=== PATIENT | male | born 1950 | race Caucasian/White ===

== ENCOUNTER 2024-08-06 13:26 | Outpatient (CLI) | payer MEDICARE, SELFPAY ==
--- NOTE | ~2024-08-06 | PE_ITS ---
EXAMINATION: PET_PETPSMAST_PT DATE: 08/06/2024 15:29 INDICATION: Prostate cancer TECHNIQUE: 5.749 mCi of Illucix Ga-[id number]) was administered i.v. Low dose computed rosa graphy (CT) images were acquired from the base of the brain to the base of the brain to the proximal thighs for attenuation correction and anatomic localization. Positron emission tomography (PET) image s were acquired in the same distribution beginning 88 minutes after injection. Images including fused PET/CT images were reconstructed in axial, coronal, and sagittal planes. Automated exposure control technique was employed. The dose-length product was 1012.55mGy-cm. COMPARISON: None FINDINGS: Head/neck: Typical pattern of symmetric physiologic increased activity in the lacrimal, parotid and submandibula r glands as well as along the mucosa of the nasal and oral cavities, pharynx and hypopharynx. No path ologically enlarged cervical lymphadenopathy or suspicious foci of increased uptake in the visualized head or neck. Chest: Lungs are clear with no suspicious pulmonary nodules, pneumonia, pulmonary edema or pleural effusion. Heart size normal. Atherosclerotic coronary artery calcifications and aortic valve calcific lesion. Thoracic aorta is normal in caliber. No pathologically enlarged or PSMA avid thoracic lymphadenopathy . Abdomen/pelvis/proximal thighs: Physiologic renal accumulation and excretion of activity in the kidneys, bladder and along portions o f ureters. Surgical clips are brachytherapy seeds at the periphery of the small prostate. There is mi nimal increased activity at the left and right sides of the prostate with maximal SUV of 4.1 on the l eft and 3.9 on the right. There are photopenic defects associated with the largest of multiple scatte red hepatic cysts which measure up to 3.2 cm. Otherwise normal degree and slightly heterogenous patte rn of increased uptake throughout the liver and spleen without radiologic correlate or dominant PSMA avid lesion. The gallbladder, pancreas and bilateral adrenal glands are normal. Moderate uptake scatt ered throughout the bowels with typical duodenal and proximal jejunal predominance and without radiol ogic correlate, also likely physiologic. Normal appendix. No other abnormal foci of increased uptake or pathologically enlarged lymphadenopathy in the abdomen, pelvis or proximal thighs. Musculoskeletal: Severe cervical and lumbar spondylosis. Small bone island at the left lesser trochanter. No suspiciou s lytic, blastic or abnormally PSMA avid bone lesions. IMPRESSION: 1. Minimal increased uptake at the left and right sides of the small prostate which could represent r esidual/locally recurrent prostate cancer. No other lesions suspicious for metastatic disease. Reviewed, dictated and finalized at location A. IMPRESSION: 1. Minimal increased uptake at the left and right sides of the small prostate w hich could represent residual/locally recurrent prostate cancer. No other lesio ns suspicious for metastatic disease.
--- OUTSIDE RECORDS SUMMARY | 2024-08-06 13:32 | XMS_ITS | Clinical Summary ---
Author Organization [facility] Address [address] [place] [phone] Care Team Providers Care Acid Pump Operator Name Role Phone Narda Martinez NP Primary Care Provider [phone] Allergies No known active allergies Medications aspirin 81 mg enteric coated tablet daily Active folic acid (FOLVITE) 1 mg tablet TAKE 1 TABLET BY MOUTH DAILY WITH MEAL 022 Active vitamin B complex capsule Take 1 capsule by mouth daily Active cholecalciferol, vitamin D3, (VITAMIN D3 ORAL) Take by mouth daily Active albuterol HFA (PROVENTIL HFA,VENTOLIN HFA,PROAIR HFA) 90 mcg/actuation inhalerIndications: COPD exacerbation (HCC),Lower resp. tract infection Inhale 2 puffs every 6 (six) hours as needed for wheezing or shortness of breath 1 each 024 Active fluticasone propion-salmeteroL (ADVAIR DISKUS) 500-50 mcg/dose diskus inhalerIndications: Vbsey-2-pgbylxpfxkd deficiency (HCC),Pulmonary emphysema, unspecified emphysema type (HCC) Inhale 1 puff 2 (two) times a day Rinse mouth with water after use. Do not swallow. 180 each 1 024 Active gabapentin (NEURONTIN) 600 mg tabletIndications:D DD (degenerative disc disease), lumbar,Lumbar facet arthropathy TAKE 1 TABLET BY MOUTH EVERY 6 HOURS 360 tablet 1 025 Active benzonatate (TESSALON) 200 mg capsuleIndications: Acute non-recurrent pansinusitis Take 1 capsule (200 mg total) by mouth 3 (three) times a day as needed for cough 30 capsule 025 Active Additional Information Patient not taking.Reported on 06/25/2024 atorvastatin (LIPITOR) 80 mg tabletIndications:C oronary arteriosclerosis Take 1 tablet (80 mg total) by mouth nightly 90 tablet 1 025 Active FLUoxetine (PROzac) 40 mg capsule Take 1 capsule (40 mg total) by mouth daily 90 capsule 1 025 Active losartan (COZAAR) 25 mg tablet TAKE 1 TABLET BY MOUTH EVERY DAY IN THE MORNING 100 tablet 1 025 Active losartan (COZAAR) 25 mg tablet TAKE 1 TABLET BY MOUTH EVERY DAY IN THE MORNING 90 tablet 1 024 2024 Discontinued FLUoxetine (PROzac) 40 mg capsule Take 1 capsule (40 mg total) by mouth daily 90 capsule 1 025 2024 Discontinued(R eorder) Active Problems Problem Noted Date Diagnosed Date Liver cyst 03/29/2022 Overview (03/29/2022): Seen on LDCT chest and US 03/2022. Needs repeat liver US 03/2023 as pt declined liver MRI Assessment & Plan (11/20/2023 6:19 PM CDT): Pt defers follow up. Likely cysts base don CT and US. We did opt offer the option for the yearly follow-up ultrasound but he elected to defer. 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 This likely contributes some to COPD. Continue Advair Atherosclerosis of aorta 09/30/2021 Assessment & Plan (11/20/2023 6:18 PM CDT): Incidental on imaging. Continue risk factor modification with high-intensity atorvastatin and aspirin Pulmonary emphysema 09/30/2021 Assessment & Plan (06/07/2024 10:44 AM RUBBER MOLDER): Pt continuing Advair, Triple therapy was too expensive in the past. Pt would like to see [facility] as he has had some more breakthrough SOB, referral placed to preferred provider. Assessment & Plan (11/20/2023 6:18 PM CDT): Chronic. Symptoms controlled. Continue generic Advair. Triple therapy was too expensive Coronary artery disease invo lving qawalangin coronary artery of qawalangin heart without angina pectoris 08/02/2021 Overview (01/21/2022): Moderate on LDCT 09/28/21 Assessment & Plan (06/07/2024 10:42 AM RUBBER MOLDER): Looks like this was incidental finding on prior chest CT. Pt continues Atorvastatin 80 mg daily and ASA 81 mg. Assessment & Plan (11/20/2023 6:20 PM CDT): Incidental noted on prior CT chest. Continue risk factor modification with high-intensity statin and aspirin. Denies recent chest pain equivalent Nicotine dependence in remission 07/21/2021 Hiatal hernia 07/21/2021 Folic acid deficiency 01/27/2021 Benign essential hypertension 01/08/2020 Assessment & Plan (06/07/2024 10:23 AM RUBBER MOLDER): Blood pressure normal in office, continuing Losartan 25 mg daily. Assessment & Plan (11/20/2023 6:18 PM CDT): Chronic. HTN controlled. Cont prescription Rx as indicated in HPI under HTN diagnosis. Low sodium diet (DASH or Mediterranean), exercise, wt loss (if over weight) discussed Dyslipidemia 01/08/2020 Assessment & Plan (11/20/2023 6:18 PM CDT): Chronic. Mostly tolerates atorvastatin but some increased aches. Check cholesterol level. Could consider change to rosuvastatin to see if the muscle cramps improve. Recurrent major depressive disorder, in full rem ission 01/08/2020 Assessment & Plan (11/20/2023 6:20 PM CDT): Chronic. Controlled. Offered option to decrease fluoxetine 20 mg daily but patient declines. Continue 40 mg dose. Reassess least yearly CKD (chronic kidney disease) stage 2, GFR 60-89 ml/min 09/25/2014 Assessment & Plan (11/20/2023 6:21 PM CDT): Mild on prior labs. Monitor DDD (degenerative disc disease), lumbar 01/25/20 14 Assessment & Plan (11/20/2023 6:20 PM CDT): Symptoms stable. Continue gabapentin. Denies intolerance. In the future we may consider trying to wean the dose some defer for now is doing well with current medication Lumbar facet arthropathy 01/24/2014 Assessment & Plan (11/20/2023 6:20 PM CDT): Symptoms stable. Continue gabapentin. Denies intolerance. In the future we may consider trying to wean the dose some defer for now is doing well with current medication History of prostate cancer 01/01/2007 Overview (01/11/2022): 2006 L 616 (30%) T1c IMRT PSA 3.9 Assessment & Plan (06/07/2024 10:43 AM RUBBER MOLDER): Have been trending pt's PSA, repeat today. Dx prostate CA x 20 years ago. If pt needs Urologist will have him see Dr Kim at [facility] in [place]. Assessment & Plan (11/20/2023 6:19 PM CDT): Patient reports this was diagnosed over 20 years ago. History has been monitored here recently. We will continue to trend PSA to ensure it does not trend up significantly. If trends up significantly then may need to arrange follow up with Urology Resolved Problems Problem Noted Date Diagnosed Date Resolved Date Cobalamin deficiency 01/27/2021 022 Encounters Date Type Department Care Team Description 06/25/2024 10:15 AM CDT Office Visit [facility] Pulmonology [address] [facility] [address] [place] [phone] Sadie Cespedes MD Shortness of breath (Primary Dx); Pulmonary emphysema, unspecified emphysema type (HCC) 06/10/2024 Results Follow-Up [facility] Primary Care at [address] [phone] Narda Martinez NP Elevated PSA (Primary Dx); History of prostate cancer 06/07/2024 10:31 AM RUBBER MOLDER - 06/07/2024 11:59 PM RUBBER MOLDER Hospital Encounter [address] [phone] History of prostate cancer; Vitamin D deficiency; Elevated fasting glucose; Coronary artery disease involving qawalangin coronary artery of qawalangin heart without angina pectoris Discharge Disposition: Discharge to home or self care 06/07/2024 10:30 AM RUBBER MOLDER Lab [facility] Outpatient Lab at [address] [phone] Pulmonary emphysema (HCC) (Primary Dx) 06/07/2024 10:00 AM RUBBER MOLDER Office Visit [facility] Primary Care at [address] [phone] Narda Martinez NP Pulmonary emphysema, unspecified emphysema type (HCC) (Primary Dx); Chronic obstructive pulmonary disease, unspecified COPD type (HCC); Vitamin D deficiency; History of prostate cancer; Coronary artery disease involving qawalangin coronary artery of qawalangin heart without angina pectoris; Elevated fasting glucose; Benign essential hypertension 05/22/2024 1:07 PM RUBBER MOLDER - 05/22/2024 11:59 PM RUBBER MOLDER Hospital Encounter [address] [address] Acute diarrhea Discharge Disposition: Discharge to home or self care 05/22/2024 1:00 PM RUBBER MOLDER Lab [facility] Outpatient Lab at [address] [phone] 05/22/2024 Results Follow-Up [facility] Primary Care at [address] [phone] Slade Galeano MD 05/20/2024 2:00 PM RUBBER MOLDER Lab [facility] Outpatient Lab at [address] [phone] Acute diarrhea (Primary Dx) 05/20/2024 1:40 PM RUBBER MOLDER - 05/20/2024 11:59 PM RUBBER MOLDER Hospital Encounter [address] [phone] Dehydration; Unspecified abnormal findings in urine; Fatigue, unspecified type; Acute diarrhea Discharge Disposition: Discharge to home or self care 05/20/2024 1:00 PM RUBBER MOLDER Office Visit [facility] Primary Care at [address] [phone] Slade Galeano MD Acute diarrhea (Primary Dx); Dehydration; Unspecified abnormal findings in urine; Fatigue, unspecified type 05/20/2024 Nurse Triage [facility] Patient Access [address] [place] [address] Unknown, Notinfile 05/17/2024 2:45 PM RUBBER MOLDER Office Visit [facility] at [address] [phone] Lorene Tuttle NP Acute viral syndrome (Primary Dx) 05/17/2024 - 05/17/2024 11:59 PM RUBBER MOLDER Hospital Encounter [address] [address] Acute viral syndrome Discharge Disposition: Discharge to home or self care 05/14/2024 Telephone [facility] Primary Care at [address] [phone] Narda Martinez NP from Last 3 Months Immunizations Immunization Administration Dates Next Due Influenza Virus Vaccine Trivalent Mdv 05/01/2017 Influenza, Quadrivalent, Hig h Dose, Preservative Free, Intrr 12/26/2022,12/12/2019 Influenza, Quadrivalent, Spl it, Intramuscular 01/04/2021,12/17/2019 Influenza, Quadrivalent, Spl it, Preservative Free, Intramuscular 01/16/2019 Influenza, Trivalent, High D ose, Split, Preservative Free, Intramuscular 12/26/2023,12/07/2017 Influenza, Unspecified 12/22/2021,12/12/2019, Pfizer SARS-CoV-2 Monovalent Vaccination (12+ Yrs) PURPLE 07/20/2021,01/04/2021,06/22/2020,06/01 Pfizer Sars-Cov-2 Bivalent V accination (12+ YRS) 12/22/2021 Pneumococcal Conjugate PCV 13 12/16/2015 Pneumococcal Conjugate Pcv20 10/27/2021 Pneumococcal Polysaccharide PPV23 09/25/2014 RSV Vaccine, Pref, Recombina nt, Subunit, Adjuvanted, PF, IM (Arexvy) 01/16/2023 ZOSTER Recombinant 02/09/2022,10/27/2021 Surgical History Surgery Date Site/Laterality Comments INGUINAL HERNIA REPAIR 04/03/1971 - 04/02/1972 TENDON REPAIR Left hand. 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, A1A pheno:M2M2 Chronic bronchitis (HCC) about 2008 Family History Medical History Relation Name Comments Alcohol abuse Father Crow Sr Coronary artery disease Father Crow Sr Hyperlipidemia Father Crow Sr Depression Mother Erika Hyperlipidemia Mother Erika Relation Name Status Comments Father Crow Sr Mother Erika Social History Tobacco Use Types Packs/Day Years Used Date Smoking Tobacco: Former Cigarettes 1.5 40 0 04/03/1966 - 04/03/2006 Smokeless Tobacco: Never Tobacco Cessation:Counseling Given: Not Answered PHQ-2 Answer Date Recorded PHQ-2 Total Score (If total score is 3 or more points, staff should administer the PHQ-9) 0 06/07/2024 Sex and Gender Information Value Date Recorded Sex Assigned at Not on file Legal Sex Male 9:30 AM CDT Gender Identity Male 11/02/2021 9:32 AM CDT Sexual Orientation Not on file Obstetrics History Last Filed Vital Signs Vital Sign Reading Time Taken Comments Blood Pressure 128/76 06/25/2024 10:05 AM CDT Pulse 69 06/25/2024 10:05 AM CDT Temperature 36.2 C (97.2 F) 06/25/2024 10:05 AM CDT Respiratory Rate 18 06/25/2024 10:05 AM CDT Oxygen Saturation 95% 06/25/2024 10:05 AM CDT Inhaled Oxygen Concentration - - Weight 82.6 kg (182 lb) 06/25/2024 10:05 AM CDT Height 177.8 cm (5' 10 ) 06/25/2024 10:05 AM CDT Body Mass Index 26.11 06/25/2024 10:05 AM CDT Plan of Treatment Health Maintenance Due Date Last Done Comments DTaP/Tdap/Td Vaccine (1 - Tdap) 1961 Covid-19 Vaccine (2023-2 5 season) 2024 12/26/2023, 12/26/2022, 12/22/2021, Additional history exists Well Visit 65+ 11/19/2024 11/20/2023, 08/0 11/2022, 07/26/2021 Depression Screening 06/07/2025 06/07/2024, 11/20/2023, 11/08/2022, Additional history exists Fall Risk Assessment 06/07/2025 06/07/2024, 11/20/2023, 11/08/2022, Additional history exists Prostate Cancer Screening-PSA 06/07/2026, 03/14/2024, 11/29/2023, Additional history exists Colon Cancer Screening-Colonoscopy 12/12/20332023, 06/14/2016 Hepatitis C Screening Completed 12/20/2016 Abdominal Aortic Aneurysm (A AA) Screen Completed 02/02/2017, 02/02/2017, 02/02/2017 Pneumococcal vaccine 65+ Completed 022, 12/16/2015, 09/25/2014 Zoster Vaccine Completed 02/09/2022, 10/27/2021 Hepatitis B Screening Completed 11/29/2023 Influenza Vaccine Completed 12/26/2023, , 12/22/2021, Additional history exists Procedures Procedure Name Priority Date/Time Associated Diagnosis Comments EGFR Routine 06/07/2024 10:31 AM RUBBER MOLDER Coronary artery disease involving qawalangin coronary artery of qawalangin heart without angina pectoris COMPREHENSIVE METABOLIC PANEL Routine 06/07/2024 10:31 AM RUBBER MOLDER Coronary artery disease involving qawalangin coronary artery of qawalangin heart without angina pectoris LIPID PANEL Routine 06/07/2024 10:31 AM RUBBER MOLDER Coronary artery disease involving qawalangin coronary artery of qawalangin heart without angina pectoris HEMOGLOBIN A1C Routine 06/07/2024 10:31 AM RUBBER MOLDER Elevated fasting glucose VITAMIN D 25 HYDROXY Routine 06/07/2024 10:31 AM RUBBER MOLDER Vitamin D deficiency PSA DIAGNOSTIC Routine 06/07/2024 10:31 AM RUBBER MOLDER History of prostate cancer C. DIFFICILE TESTING Routine 05/22/2024 1:07 PM RUBBER MOLDER Acute diarrhea EGFR Routine 05/20/2024 1:40 PM RUBBER MOLDER Acute diarrhea DIFFERENTIAL AUTO Routine 05/20/2024 1:4 0 PM RUBBER MOLDER Acute diarrhea CBC WITH AUTO DIFFERENTIAL Routine 05/20/2024 1:40 PM RUBBER MOLDER Acute diarrhea BASIC METABOLIC PANEL Routine 05/20/2024 1:40 PM RUBBER MOLDER Acute diarrhea THYROID FUNCTION CASCADE Routine 05/20/2024 1:40 PM RUBBER MOLDER Fatigue, unspecified type VITAMIN B12 Routine 05/20/2024 1:40 PM RUBBER MOLDER Fatigue, unspecified type URINE CULTURE Routine 05/20/2024 1:40 PM RUBBER MOLDER Dehydration Unspecified abnormal findings in urine POCT URINALYSIS, AUTO W/O SCOPE Routine 05/20/2024 1:39 PM RUBBER MOLDER Dehydration POC INFLUENZA A/B, COVID-19 ANTIGEN Routine 05/17/2024 3:12 PM RUBBER MOLDER Acute viral syndrome INFLUENZA A/B, RSV, AND COVID-19 PCR Routine 05/17/2024 12:00 AM RUBBER MOLDER Acute viral syndrome HM COLONOSCOPY Routine 12/13/2023 9:21 AM CDT HEPATITIS C SCREENING Routine 12/20/2016 from Last 3 Months or Most Recently Relevant to Health Maintenance Results * eGFR (06/07/2024 10:31 AM RUBBER MOLDER) eGFR 75 >=60 mL/min/1. 73 m2 Comment: Interpretive Data Reference Interval Normal >/= 90 mL/min/1.73m2 Mildly decreased* 60 - 89 mL/min/1.73m2 Mildly to moderately decreased 45 - 59 mL/min/1.73m2 Moderately to severely decreased 30 - 44 mL/min/1.73m2 Severely decreased 15 - 29 mL/min/1.73m2 Kidney Failure < 15 mL/min/1.73m2 *Relative to young adult level Estimated glomerular filtration rate is determined by the 2020 CKD-EPI equation recommended by the National Kidney Foundation (A Unifying Approach to GFR Estimation: Recommendations of the NKF-ASK Task Force on Reassessing the Inclusion of Race in Diagnosing Kidney Disease, JASN 2020). The CKD-EPI equation should not be used for patients with unstable renal function and has not been validated in children and those over 70. Current interpretive data was last reviewed 2021. Blood 06/07/2024 10:3 1 AM RUBBER MOLDER 06/07/2024 10:34 PM RUBBER MOLDER us Narda Martinez DRY CLEANING ATTENDANT LAB BLOOD ORDERABLES Final Resul t Performing Organization Address [facility] de Phone Number AURELIO HESS [id number] [place] [address] * (ABNORMAL) Vitamin D 25 hydroxy (06/07/2024 10:31 AM RUBBER MOLDER) Vitamin D 25-OH 28(L) 30 - 80 ng/mL Blood 06/07/2024 10:3 1 AM RUBBER MOLDER 06/07/2024 10:30 PM RUBBER MOLDER us Narda Martinez DRY CLEANING ATTENDANT LAB BLOOD ORDERABLES Final Resul t Performing Organization Address [facility] de Phone Number AURELIO HESS [address] [facility] [place] [address] * PSA diagnostic (06/07/2024 10:31 AM RUBBER MOLDER) Pathologist [facility] PSA-Total 1.74 <=6.20 ng/mL Comment: Interpretive Data AGE SEX REFERENCE INTERVAL 0 minutes-150 years Female None 0 minutes-49 years Male None 50-59 years Male 0-3.90 60-69 years Male 0-5.40 70-79 years Male 0-6.20 80-150 years Male 0-6.20 The Du PSA Total assay procedure was used. Results from different manufacturers or methods may not be comparable. Serial testing should be performed using the same method. Current interpretive data last revised 21. Blood 06/07/2024 10:3 1 AM RUBBER MOLDER 06/07/2024 10:30 PM RUBBER MOLDER us Narda Martinez DRY CLEANING ATTENDANT LAB BLOOD ORDERABLES Final Resul t Performing Organization Address [facility] de Phone Number AURELIO HESS [address] [address] [facility] [place] [address] * (ABNORMAL) Hemoglobin A1c (06/07/2024 10:31 AM RUBBER MOLDER) Hgb A1C 5.8(H) 4.0 - 5.6 % Estimated Average Glucose 120 mg/dL AURELIO HESS Comment: The ADA recommends reporting an estimated Average Glucose (eAG) with all Hemoglobin A1c results using the equation derived from a study of 507 normal and diabetic adults. Minority populations were underrepresented and children were not included. (Diabetes Care 31:4874-6640, 2008). The eAG is not equivalent to a fasting glucose. Blood 06/07/2024 10:3 1 AM RUBBER MOLDER 06/07/2024 10:30 PM RUBBER MOLDER us Narda Martinez NP LAB BLOOD ORDERABLES Final Resul t AURELIO HESS [address] Department [place] [address] * (ABNORMAL) Lipid panel (06/07/2024 10:31 AM RUBBER MOLDER) Cholesterol 170 30 - 199 mg/dL Comment: Interpretive Data Ages < or = 19 years Acceptable: <170 mg/dL Borderline high: 170-199 mg/dL High: >or= 200 mg/dL Ages > or = 20 years Desirable: <200 mg/dL Borderline high: 200-239 mg/dL High: >or= 240 mg/dL Literature References: 1. Expert Panel on Integrated Guidelines for Cardiovascular Health and Risk Reduction in Children and Adolescents. Pediatrics 2011;128:S213 2. NCEP Expert Panel. Circulation 2004;110:227 Current Interpretive Data was last revised on 2017. Triglycerides 181(H) <=149 mg/dL AURELIO HESS Comment: Interpretive Data Ages < or = 9 years Acceptable: <75 mg/dL Borderline high: 75-99 mg/dL High: >or= 100 mg/dL Ages 10 to 20 years Acceptable: <90 mg/dL Borderline high: 90-129 mg/dL High: >or= 130 mg/dL Ages > or = 20 years Desirable: <150 mg/dL Borderline high: 150-199 mg/dL High: 200-499 mg/dL Very high: >or= 499 mg/dL Literature References: 1. Expert Panel on Integrated Guidelines for Cardiovascular Health and Risk Reduction in Children and Adolescents. Pediatrics 2011;128:S213 2. NCEP Expert Panel. Circulation 2004;110:227 Current Interpretive Data was last revised on 2017. HDL 54 >=40 mg/dL AURELIO HESS Comment: Interpretive Data Ages < or = 19 years Acceptable: >45 mg/dL Borderline low: 40-45 mg/dL Low: <40 mg/dL Ages > or = 20 years Desirable: >or= 60 mg/dL Low: <40 mg/dL Literature References: 1. Expert Panel on Integrated Guidelines for Cardiovascular Health and Risk Reduction in Children and Adolescents. Pediatrics 2011;128:S213 2. NCEP Expert Panel. Circulation 2004;110:227 Current Interpretive Data was last revised on 2017. LDL, calculated 85 <=129 mg/dL AURELIO HESS Comment: Interpretive Data Ages < or = 19 years Acceptable: <110 mg/dL Borderline high: 110-129 mg/dL High: >or= 130 mg/dL Ages > or = 20 years Optimal: <100 mg/dL Near optimal: 100-129 mg/dL Borderline high: 130-159 mg/dL High: >160 mg/dL Calculated using the Alberot LDL-C estimating equation. This equation was implemented on 2023. Prior to this date LDL-C was estimated using the Friedewald equation. Literature References: 1. Expert Panel on Integrated Guidelines for Cardiovascular Health and Risk Reduction in Children and Adolescents. Pediatrics 2011;128:S213 2. NCEP Expert Panel. Circulation 2004;110:227 3. Alberto Boothe al. SHELLY Cardiol. 2019August 01;5(5):540-548. doi: 10.1001/[email or web address] Current Interpretive Data was last revised on 2023. Non-HDL Cholesterol 116 mg/dL AURELIO HESS Comment: Interpretive Data Ages < or = 19 years Acceptable: <120 mg/dL Borderline high: 120-144 mg/dL High: >145 mg/dL Ages > or = 20 years When triglycerides are >200 mg/dL, Non-HDL cholesterol is a secondary target of therapy with treatment goals that are 30 mg/dL greater than the LDL cholesterol target. Literature References: 1. Expert Panel on Integrated Guidelines for Cardiovascular Health and Risk Reduction in Children and Adolescents. Pediatrics 2011;128:S213 2. NCEP Expert Panel. Circulation 2004;110:227 Current Interpretive Data was last revised on 2017. Chol/HDL ratio 3 [facility] Blood 06/07/2024 10:3 1 AM RUBBER MOLDER 06/07/2024 10:30 PM RUBBER MOLDER us Narda Martinez NP LAB [place]LOOD [place] [address] [address] [place] [address] * Comprehensive metabolic panel (06/07/2024 10:31 AM RUBBER MOLDER) Sodium 140 135 - 145 mmol/L Potassium, pl 4.5 3.3 - 4.9 mmol/L [facility] Chloride 103 97 - 110 mmol/L [facility] CO2 24 22 - 32 mmol/L [facility] Anion gap 13 2 - 15 mmol/L [facility] BUN 15 6 - 25 mg/dL [facility] Creatinine 1.04 0.80 - 1.30 mg/dL [facility] Glucose 81 70 - 199 mg/dL [facility] Comment: Interpretive Data Fasting glucose >/= 126 mg/dl is diagnostic for diabetes. Fasting is defined as no caloric intake for at least 8 hours. Fasting glucose between 100 mg/dl to 125 mg/dl is diagnostic of prediabetes. In a patient with classic symptoms of hyperglycemia or hyperglycemic crisis, a random glucose >/= 200 mg/dl is diagnostic for diabetes. In the absence of unequivocal hyperglycemia, results should be confirmed by repeat testing. The classification and Diagnosis of Diabetes Diabetes Care 2021; 46: S19-S40. Current interpretive data was last revised 2022. Calcium 9.6 8.5 - 10.3 mg/dL [facility] Bilirubin, total 0.9 0.1 - 1.2 mg/dL [facility] Protein, pl 6.7 6.5 - 8.5 g/dL [facility] Albumin 4.3 3.5 - 5.0 g/dL [facility] Alk phos 80 40 - 130 Units/L [facility] ALT 29 7 - 55 Units/L [facility] AST 26 10 - 50 Units/L [facility] Blood 06/07/2024 10:3 1 AM RUBBER MOLDER 06/07/2024 10:30 PM RUBBER MOLDER Narda Martinez NP LAB BLOOD ORDERABLES Final Resul t Performing Organization Address [facility] Co de Phone Number AURELIO HESS [address] [place] [address] * (ABNORMAL) C. difficile testing Stool (05/22/2024 1:07 PM RUBBER MOLDER) [facility] Result Positive Negative Comment:Testing performed by : [facility], [address] [place]., [address] Toxin Result Positive Negative [facility] Comment:Testing performed by : [facility], [address] [place]., [address] C. diff result Positive, free toxin(A) Negative, free toxin [facility] [facility] Comment:Testing performed by : [facility], [address] [place] [address]., [id number] C. diff interp Toxigenic Clostridioides (Clostridium) difficile detected. Analysis was performed using a two-step methodology using glutamate dehydrogenase antigen detection followed by detection of C. difficile toxin(s). AURELIO Comment:Testing performed by : [facility], [address] [place] [address]., [id number] Stool 05/22/2024 1:07 PM RUBBER MOLDER 05/23/2024 2:06 AM RUBBER MOLDER Slade Galeano MD LAB MICROBIOLOGY - GENERAL ORDERABLES Final Result Performing Organization Address City/[facility] Co de Phone Number [facility] [address] [place] [address] * eGFR (05/20/2024 1:40 PM RUBBER MOLDER) [facility] eGFR 77 >=60 mL/min/1. 73 m2 Comment: Interpretive Data Reference Interval Normal >/= 90 mL/min/1.73m2 Mildly decreased* 60 - 89 mL/min/1.73m2 Mildly to moderately decreased 45 - 59 mL/min/1.73m2 Moderately to severely decreased 30 - 44 mL/min/1.73m2 Severely decreased 15 - 29 mL/min/1.73m2 Kidney Failure < 15 mL/min/1.73m2 *Relative to young adult level Estimated glomerular filtration rate is determined by the 2020 CKD-EPI equation recommended by the National Kidney Foundation (A Unifying Approach to GFR Estimation: Recommendations of the NKF-ASK Task Force on Reassessing the Inclusion of Race in Diagnosing Kidney Disease, JASN 2020). The CKD-EPI equation should not be used for patients with unstable renal function and has not been validated in children and those over 70. Current interpretive data was last reviewed 2021. Blood 05/20/2024 1:40 PM RUBBER MOLDER 05/20/2024 9:59 PM RUBBER MOLDER us Slade Galeano MD LAB BLOOD ORDERABLES Final Result Performing Organization Address City/State/ZIP Co mi Phone Number [facility] [address] [place] [address] * (ABNORMAL) Differential, auto (05/20/2024 1:40 PM RUBBER MOLDER) Neutrophil abs 4.5 1.5 - 6.5 K/cumm Imm gran abs 0.0 0.0 - 0.1 K/cumm [facility] Lymphocyte abs 1.8 0.8 - 3.3 K/cumm [facility] Monocyte abs 2.5(H) 0.2 - 0.8 K/cumm [facility] Eosinophil abs 0.4 0.0 - 0.5 K/cumm [facility] Basophil abs 0.1 0.0 - 0.1 K/cumm [facility] Neutrophil pct 48.4 % [facility] Comment: Interpretive Data Percent cell count reference ranges are not reported, since discordance with absolute values may lead to misinterpretation of CBC data. Current Interpretive Data was last revised on 2017. Imm gran pct 0.4 % [facility] Comment: Interpretive Data Percent cell count reference ranges are not reported, since discordance with absolute values may lead to misinterpretation of CBC data. Current Interpretive Data was last revised on 2017. Lymphocyte pct 19.4 % [facility] Comment: Interpretive Data Percent cell count reference ranges are not reported, since discordance with absolute values may lead to misinterpretation of CBC data. Current Interpretive Data was last revised on 2017. Monocyte pct 26.7 % [facility] Comment: Interpretive Data Percent cell count reference ranges are not reported, since discordance with absolute values may lead to misinterpretation of CBC data. Current Interpretive Data was last revised on 2017. Eosinophil pct 4.0 % [facility] Comment: Interpretive Data Percent cell count reference ranges are not reported, since discordance with absolute values may lead to misinterpretation of CBC data. Current Interpretive Data was last revised on 2017. Basophil pct 1.1 % [facility] Comment: Interpretive Data Percent cell count reference ranges are not reported, since discordance with absolute values may lead to misinterpretation of CBC data. Current Interpretive Data was last revised on 2017. Blood 05/20/2024 1:40 PM RUBBER MOLDER 05/20/2024 9:56 PM RUBBER MOLDER Slade Galeano MD LAB BLOOD ORDERABLES Final Result Performing Organization Address [facility] Co de Phone Number [facility] [address] [facility] [place] [address] * Thyroid Function [place] (05/20/2024 1:40 PM RUBBER MOLDER) TSH 1.52 0.30 - 4.20 mcIUnit/mL Blood 05/20/2024 1:40 PM RUBBER MOLDER 05/20/2024 9:56 PM RUBBER MOLDER Slade Galeano MD LAB BLOOD ORDERABLES Final Result Performing Organization Address City/[facility] Co de Phone Number AURELIO [address] [facility] [place] [address] * (ABNORMAL) CBC with auto differential (05/20/2024 1:40 PM RUBBER MOLDER) WBC 9.3 3.8 - 9.9 K/cumm Hgb 15.6 13.0 - 17.5 g/dL [facility] Hct 48.2 38.9 - 50.3 % [facility] Plt 353 150 - 400 K/cumm [facility] MPV 10.6 9.1 - 12.3 fL [facility] RBC 4.94 4.30 - 5.80 M/cumm [facility] MCV 97.6(H) 81.3 - 96.4 fL [facility] MCH 31.6 27.1 - 33.3 pg [facility] MCHC 32.4 32.3 - 35.7 g/dL [facility] RDW CV 13.1 11.1 - 14.9 % [facility] RDW SD 47.4 35.7 - 48.1 fL [facility] NRBC abs 0.00 0.00 - 0.01 K/cumm [facility] Blood 05/20/2024 1:40 PM RUBBER MOLDER 05/20/2024 9:56 PM RUBBER MOLDER Slade Galeano MD LAB BLOOD ORDERABLES Final Result Performing Organization Address [facility] de Phone Number AURELIO [facility]ESS [address] [place] [address] * Urine culture Urine, clean voided (05/20/2024 1:40 PM RUBBER MOLDER) Report Final Report: No growth Comment:Testing performed by : [facility], [address] [place] [place]., [address] Urine, clean voided 05/20/2024 1:40 PM RUBBER MOLDER 05/20/2024 10:10 PM RUBBER MOLDER Narrative [facility] - 05/22/2024 7:57 AM RUBBER MOLDER Testing performed by [facility] Microbiology Laboratory ([phone]) Slade Galeano MD LAB MICROBIOLOGY - GENERAL ORDERABLES Final Result Performing Organization Address [facility] Co de Phone Number AURELIO [address] [place] [address] * (ABNORMAL) Vitamin B12 (05/20/2024 1:40 PM RUBBER MOLDER) Vitamin B12 1,860(H) 230 - 1,250 pg/mL Blood 05/20/2024 1:40 PM RUBBER MOLDER 05/20/2024 9:56 PM RUBBER MOLDER Slade Galeano MD LAB BLOOD ORDERABLES Final Result Performing Organization Address [facility] de Phone Number [facility] [address] [place] [address] * Basic metabolic panel (05/20/2024 1:40 PM RUBBER MOLDER) Sodium 137 135 - 145 mmol/L Potassium, pl 4.1 3.3 - 4.9 mmol/L [facility] Chloride 98 97 - 110 mmol/L [facility] CO2 25 22 - 32 mmol/L [facility] Anion gap 14 2 - 15 mmol/L [facility] BUN 16 6 - 25 mg/dL [facility] Creatinine 1.02 0.80 - 1.30 mg/dL [facility] Glucose 86 70 - 199 mg/dL [facility] Comment: Interpretive Data Fasting glucose >/= 126 mg/dl is diagnostic for diabetes. Fasting is defined as no caloric intake for at least 8 hours. Fasting glucose between 100 mg/dl to 125 mg/dl is diagnostic of prediabetes. In a patient with classic symptoms of hyperglycemia or hyperglycemic crisis, a random glucose >/= 200 mg/dl is diagnostic for diabetes. In the absence of unequivocal hyperglycemia, results should be confirmed by repeat testing. The classification and Diagnosis of Diabetes Diabetes Care 2021; 46: S19-S40. Current interpretive data was last revised 2022. Calcium 9.1 8.5 - 10.3 mg/dL [facility] Blood 05/20/2024 1:40 PM RUBBER MOLDER 05/20/2024 9:56 PM RUBBER MOLDER Slade Galeano MD LAB BLOOD ORDERABLES Final Result Performing Organization Address City/[facility] Co de Phone Number AURELIO [address] [place] [address] * (ABNORMAL) POCT UA, AUTO W/O SCOPE (05/20/2024 1:39 PM RUBBER MOLDER) Color, Urine, POC Yellow Clarity, ur, POC Clear Clear Glucose, ur, POC Negative Negative MG/DL Bilirubin, ur, POC Small Negative, Small, Moderate, Large Ketones, ur, POC Trace(A) Negative Specific Rogers, POC 1.020 1.003 - 1.030 Blood, ur, POC Negative Negative pH, ur, POC 6.0 5.0 - 8.0 Protein, ur, POC Negative Negative Urobilinogen, Urine, POC 0.2 mg/dL Leukocytes, ur, POC Negative Negative Nitrite, ur, POC Negative Negative Appearance, fld Clear Clear Urine, clean voided 05/20/2024 1:39 PM RUBBER MOLDER Slade Galeano MD POINT OF CARE TEST ORDERABL ES Final Result * POC Influenza A/B, COVID-19 antigen (05/17/2024 3:12 PM RUBBER MOLDER) Pathologist [facility] Influenza A Ag, POC Negative Negative [facility] Influenza B Ag, POC Negative Negative [facility] COVID-19 Ag POC Presumptive Negative Presumptive Negative, Invalid [facility] Nasal 05/17/2024 3:12 PM RUBBER MOLDER Lorene Tuttle NP POINT OF CARE TEST ORDERABLES Final Result [facility] [address] [place] [address] * Influenza A/B, RSV, and COVID-19 PCR Nasopharyngeal (05/17/2024 12:00 AM RUBBER MOLDER) Pathologist [facility] COVID-19 RNA Negative Negative Influenza A RNA Negative Negative [facility] Influenza B RNA Negative Negative [facility] RSV RNA Negative Negative [facility] Comment: Interpretive data: Testing performed by [facility]. This test is performed using the [employer] Xpert Xpress CoV-2/Flu/RSV plus assay. This is a multiplex, real-time reverse transcriptase PCR assay intended for the qualitative detection of nucleic acid from SARS-CoV-2, influenza A, influenza B, and respiratory syncytial virus. This assay has been cleared by the [place] Food and Drug administration. The performance characteristics have been verified by the [facility]. Results must be considered in the clinical context, and a negative result does not rule out infection. Interpretive Data last revised 2023 Nasopharyngeal 05/17/2024 05/17/2024 7:13 PM RUBBER MOLDER Narrative A[facility]LIO - 05/17/2024 8:48 PM RUBBER MOLDER Is the Patient experiencing symptoms consistent with COVID?->Yes Reason for testing?->Symptomatic Known exposure to confirmed or suspected COVID-19 case?->Yes Result [facility] Lorene Tuttle NP LAB MICROBIOLOGY - GENERAL ORD ERABLES Final Result [facility] [address] [place] [address] CH * COLONOSCOPY (12/13/2023 9:21 AM CDT) Scribed Colonoscopy Abnormal Result [facility] Historical Provider HEALTH MAINTENANCE Final Result * HEPATITIS C SCREENING (12/20/2016) SCRIBED HCV ab nonreactive Comment:care everywhere 12/20/2016 Historical Provider HEALTH MAINTENANCE Final Result from Last 3 Months or Most Recently Relevant to Health Maintenance Additional Health Concerns Infection Onset Date Last Indicated C. 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
--- OUTSIDE RECORDS SUMMARY | 2024-08-06 13:32 | XMS_ITS | Referral Summary ---
Author Organization [address] Address [address] [place] [phone] Care Team Providers Care Primary Special Education Teacher Name Role Phone Narda Martinez NP Primary Care Provider [phone] Encounters Date Type Department Care Team Description 06/25/2024 10:15 AM CDT Office Visit [facility] Pulmonology [address] [place] [phone] Sadie Cespedes MD Shortness of breath (Primary Dx); Pulmonary emphysema, unspecified emphysema type (HCC) 06/10/2024 Results Follow-Up [facility] Primary Care at [address] [phone] Narda Martinez NP Elevated PSA (Primary Dx); History of prostate cancer 06/07/2024 10:31 AM GEOSCIENCE SPECIALIST - 06/07/2024 11:59 PM GEOSCIENCE SPECIALIST [place] [address] History of prostate cancer; Vitamin D deficiency; Elevated fasting glucose; Coronary artery disease involving [place] coronary artery of [place] heart without angina pectoris Discharge Disposition: Discharge to home or self care 06/07/2024 10:30 AM GEOSCIENCE SPECIALIST Lab [facility] Outpatient Lab at [address] [phone] Pulmonary emphysema (HCC) (Primary Dx) 06/07/2024 10:00 AM GEOSCIENCE SPECIALIST Office Visit [facility] Primary Care at [address] [phone] Narda Martinez NP Pulmonary emphysema, unspecified emphysema type (HCC) (Primary Dx); Chronic obstructive pulmonary disease, unspecified COPD type (HCC); Vitamin D deficiency; History of prostate cancer; Coronary artery disease involving [place] apache coronary artery of [place] apache heart without angina pectoris; Elevated fasting glucose; Benign essential hypertension 05/22/2024 1:07 PM GEOSCIENCE SPECIALIST - 05/22/2024 11:59 PM GEOSCIENCE SPECIALIST Hospital Encounter [address] [address] Acute diarrhea Discharge Disposition: Discharge to home or self care 05/22/2024 1:00 PM GEOSCIENCE SPECIALIST Lab [facility] Outpatient Lab at [address] [phone] 05/22/2024 Results Follow-Up [facility] Primary Care at [address] [phone] Slade Galeano MD 05/20/2024 1:40 PM GEOSCIENCE SPECIALIST - 05/20/2024 11:59 PM GEOSCIENCE SPECIALIST Hospital Encounter [address] [phone] Dehydration; Unspecified abnormal findings in urine; Fatigue, unspecified type; Acute diarrhea Discharge Disposition: Discharge to home or self care 05/20/2024 2:00 PM GEOSCIENCE SPECIALIST Lab [facility] Outpatient Lab at [address] [phone] Acute diarrhea (Primary Dx) 05/20/2024 1:00 PM GEOSCIENCE SPECIALIST Office Visit [facility] Primary Care at [address] [phone] Slade Galeano MD Acute diarrhea (Primary Dx); Dehydration; Unspecified abnormal findings in urine; Fatigue, unspecified type 05/20/2024 Nurse Triage [facility] Patient Access [address] [facility] [address] [place] [address] Unknown, Notinfile 05/17/2024 - 05/17/2024 11:59 PM GEOSCIENCE SPECIALIST Hospital Encounter [address] [phone] Acute viral syndrome Discharge Disposition: Discharge to home or self care 05/17/2024 2:45 PM GEOSCIENCE SPECIALIST Office Visit [facility] Medical [facility] Care at [address] [phone] Lorene Tuttle NP Acute viral syndrome (Primary Dx) 05/14/2024 Telephone [facility] Primary Care at [address] [phone] Narda Martinez NP from Last 3 Months Allergies No known active allergies Medications aspirin [...] propion-salmeteroL (ADVAIR DISKUS) 500-50 mcg/dose diskus inhalerIndications: Qfjfu-[id number] deficiency (HCC),Pulmonary emphysema, unspecified emphysema type (HCC) [...] the future Elevated coronary artery calcium score Overview (01/21/2022): 417 on 07/30/21 Vitamin D deficiency 11/03/2021 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 This likely contributes some to COPD. Continue Advair Atherosclerosis of aorta 09/30/2021 Assessment & Plan (11/20/2023 6:18 PM CDT): Incidental on imaging. Continue risk factor modification with high-intensity atorvastatin and aspirin Pulmonary emphysema 09/30/2021 Assessment & Plan (06/07/2024 10:44 AM GEOSCIENCE SPECIALIST): Pt continuing Advair, Triple therapy was too expensive in the past. Pt would like to see Extractor Operator Helper as he has had some more breakthrough SOB, referral placed to preferred provider. Assessment & Plan (11/20/2023 6:18 PM CDT): Chronic. Symptoms controlled. Continue generic Advair. Triple therapy was too expensive Coronary artery disease invo lving [place]cal[place] apache coronary artery of [place] apache heart without angina pectoris 08/02/2021 Overview (01/21/2022): Moderate on LDCT 09/28/21 Assessment & Plan (06/07/2024 10:42 AM GEOSCIENCE SPECIALIST): Looks like this was incidental finding on [...] 01/08/2020 Assessment & Plan (06/07/2024 10:23 AM GEOSCIENCE SPECIALIST): Blood pressure normal in office, continuing Losartan [...] 3.9 Assessment & Plan (06/07/2024 10:43 AM GEOSCIENCE SPECIALIST): Have been trending pt's PSA, repeat today. Dx prostate CA x 20 years ago. If pt needs Urologist will have him see Dr Kim at [facility] in [place]. Assessment & Plan (11/20/2023 6:19 PM CDT): Patient reports this was diagnosed over 20 years ago. History has been monitored here recently. We will continue to trend PSA to ensure it does not trend up significantly. If trends up significantly then may need to arrange follow up with Urology Resolved Problems Problem Noted Date Diagnosed Date Resolved Date Cobalamin deficiency 01/27/2021 022 Immunizations Immunization Administration Dates Next Due Influenza [...] PF, IM (Arexvy) 01/16/2023 ZOSTER Recombinant 02/09/2022,10/27/2021 Social History Tobacco Use Types Packs/Day Years [...] AM CDT Sexual Orientation Not on file Last Filed Vital Signs Vital Sign Reading [...] 06/25/2024 10:05 AM CDT Plan of Treatment Not on file Procedures Procedure Name Priority Date/Time Associated Diagnosis Comments EGFR Routine 06/07/2024 10:31 AM GEOSCIENCE SPECIALIST Coronary artery disease involving [place] coronary artery of [place] heart without angina pectoris COMPREHENSIVE METABOLIC PANEL Routine 06/07/2024 10:31 AM GEOSCIENCE SPECIALIST Coronary artery disease involving [place] coronary artery of [place] heart without angina pectoris LIPID PANEL Routine 06/07/2024 10:31 AM GEOSCIENCE SPECIALIST Coronary artery disease involving [place] coronary artery of [place] heart without angina pectoris HEMOGLOBIN A1C Routine 06/07/2024 10:31 AM GEOSCIENCE SPECIALIST Elevated fasting glucose VITAMIN D 25 HYDROXY Routine 06/07/2024 10:31 AM GEOSCIENCE SPECIALIST Vitamin D deficiency PSA DIAGNOSTIC Routine 06/07/2024 10:31 AM GEOSCIENCE SPECIALIST History of prostate cancer C. DIFFICILE TESTING Routine 05/22/2024 1:07 PM GEOSCIENCE SPECIALIST Acute diarrhea EGFR Routine 05/20/2024 1:40 PM GEOSCIENCE SPECIALIST Acute diarrhea DIFFERENTIAL AUTO Routine 05/20/2024 1:4 0 PM GEOSCIENCE SPECIALIST Acute diarrhea CBC WITH AUTO DIFFERENTIAL Routine 05/20/2024 1:40 PM GEOSCIENCE SPECIALIST Acute diarrhea BASIC METABOLIC PANEL Routine 05/20/2024 1:40 PM GEOSCIENCE SPECIALIST Acute diarrhea THYROID FUNCTION CASCADE Routine 05/20/2024 1:40 PM GEOSCIENCE SPECIALIST Fatigue, unspecified type VITAMIN B12 Routine 05/20/2024 1:40 PM GEOSCIENCE SPECIALIST Fatigue, unspecified type URINE CULTURE Routine 05/20/2024 1:40 PM GEOSCIENCE SPECIALIST Dehydration Unspecified abnormal findings in urine POCT URINALYSIS, AUTO W/O SCOPE Routine 05/20/2024 1:39 PM GEOSCIENCE SPECIALIST Dehydration POC INFLUENZA A/B, COVID-19 ANTIGEN Routine 05/17/2024 3:12 PM GEOSCIENCE SPECIALIST Acute viral syndrome INFLUENZA A/B, RSV, AND COVID-19 PCR Routine 05/17/2024 12:00 AM GEOSCIENCE SPECIALIST Acute viral syndrome HM COLONOSCOPY Routine 12/13/2023 9:21 AM CDT HEPATITIS C SCREENING Routine 12/20/2016 from Last 3 Months or Most Recently Relevant to Health Maintenance Results * eGFR (06/07/2024 10:31 AM GEOSCIENCE SPECIALIST) eGFR 75 >=60 mL/min/1. 73 m2 Comment: [...] reviewed 2021. Blood 06/07/2024 10:3 1 AM GEOSCIENCE SPECIALIST 06/07/2024 10:34 PM GEOSCIENCE SPECIALIST us Narda Martinez NP LAB BLOOD ORDERABLES Final Resul t AURELIO [address] Department [place] [employer] [place] [address] * (ABNORMAL) Vitamin D 25 hydroxy (06/07/2024 10:31 AM GEOSCIENCE SPECIALIST) Vitamin D 25-OH 28(L) 30 - 80 ng/mL Blood 06/07/2024 10:3 1 AM GEOSCIENCE SPECIALIST 06/07/2024 10:30 PM GEOSCIENCE SPECIALIST Narda Martinez NP LAB BLOOD ORDERABLES Final Resul t Performing Organization Address [facility] de Phone Number [facility] [address] [place] [address] * PSA diagnostic (06/07/2024 10:31 AM GEOSCIENCE SPECIALIST) Pathologist [facility] PSA-Total 1.74 <=6.20 ng/mL Comment: Interpretive Data [...] revised 21. Blood 06/07/2024 10:3 1 AM GEOSCIENCE SPECIALIST 06/07/2024 10:30 PM GEOSCIENCE SPECIALIST us Narda Martinez NP LAB BLOOD ORDERABLES Final Resul t Performing Organization Address [facility] Co de Phone Number [facility] [address] [place] [address] * (ABNORMAL) Hemoglobin A1c (06/07/2024 10:31 AM GEOSCIENCE SPECIALIST) Pathologist [facility] Hgb A1C 5.8(H) 4.0 - 5.6 % Estimated Average Glucose 120 mg/dL A[facility]LIO HESS Comment: The ADA recommends reporting an estimated Average Glucose (eAG) with all Hemoglobin A1c results using the equation derived from a study of 507 normal and diabetic adults. Minority populations were underrepresented and children were not included. (Diabetes Care 31:6712-7702, 2008). The eAG is not equivalent to a fasting glucose. Blood 06/07/2024 10:3 1 AM GEOSCIENCE SPECIALIST 06/07/2024 10:30 PM GEOSCIENCE SPECIALIST us Narda Martinez NP LAB BLOOD ORDERABLES Final Resul t [facility]IO [address] Department [place] [address] * (ABNORMAL) Lipid panel (06/07/2024 10:31 AM GEOSCIENCE SPECIALIST) Cholesterol 170 30 - 199 mg/dL Comment: [...] mg/dL High: >160 mg/dL Calculated using the Alberto LDL-C estimating equation. This equation was implemented on 2023. Prior to this date LDL-C was estimated using the Friedewald equation. Literature References: 1. Expert Panel on Integrated Guidelines for Cardiovascular Health and Risk Reduction in Children and Adolescents. Pediatrics 2011;128:S213 2. NCEP Expert Panel. Circulation 2004;110:227 3. Alberto Chapin et al. SHELLY Cardiol. 2019August 01;5(5):540-548. doi: 10.1001/jamacardio.2020.0013 Current Interpretive Data was last revised on 2023. Non-HDL Cholesterol 116 mg/dL AURELIO Comment: Interpretive Data Ages < or = [...] last revised on 2017. Chol/HDL ratio 3 AURELIO Blood 06/07/2024 10:3 1 AM GEOSCIENCE SPECIALIST 06/07/2024 10:30 PM GEOSCIENCE SPECIALIST Narda Martinez NP LAB BLOOD ORDERABLES Final Resul t Performing Organization Address [facility]/ZIP Co de Phone Number AURELIO HESS [address] [place] [employer] [place] [address] * Comprehensive metabolic panel (06/07/2024 10:31 AM GEOSCIENCE SPECIALIST) Sodium 140 135 - 145 mmol/L Potassium, [...] CERNER CH Blood 06/07/2024 10:3 1 AM GEOSCIENCE SPECIALIST 06/07/2024 10:30 PM GEOSCIENCE SPECIALIST Narda Martinez NP LAB BLOOD ORDERABLES Final Resul t Performing Organization Address [facility]/ZIP Co de Phone Number AURELIO HESS [address] Department [place] [address] * (ABNORMAL) C. difficile testing Stool (05/22/2024 1:07 PM GEOSCIENCE SPECIALIST) Pathologist [facility] GDH Result Positive Negative Comment:Testing performed by : [facility], [address] [place]., [address] Toxin Result Positive Negative AURELIO HESS Comment:Testing performed by : [facility], [address] [place]., [address] C. diff result Positive, free toxin(A) Negative, free toxin AURELIO HESS Comment:Testing performed by : [facility], [address] [place]., [address] C. diff interp Toxigenic Clostridioides (Clostridium) difficile detected. Analysis was performed using a two-step methodology using glutamate dehydrogenase antigen detection followed by detection of C. difficile toxin(s). AURELIO HESS Comment:Testing performed by : [facility], [address] [place]., [address] Stool 05/22/2024 1:07 PM GEOSCIENCE SPECIALIST 05/23/2024 2:06 AM GEOSCIENCE SPECIALIST Slade Galeano MD LAB MICROBIOLOGY - GENERAL ORDERABLES Final Result A[facility] HESS [address] Department [place] [address] * eGFR (05/20/2024 1:40 PM GEOSCIENCE SPECIALIST) Pathologist [facility] eGFR 77 >=60 mL/min/1. 73 m2 Comment: [...] last reviewed 2021. Blood 05/20/2024 1:40 PM GEOSCIENCE SPECIALIST 05/20/2024 9:59 PM GEOSCIENCE SPECIALIST us Slade Galeano MD LAB BLOOD ORDERABLES Final Result [facility] [address] [place] [address] * (ABNORMAL) Differential, auto (05/20/2024 1:40 PM GEOSCIENCE SPECIALIST) Neutrophil abs 4.5 1.5 - 6.5 K/cumm Imm gran abs 0.0 0.0 - 0.1 K/cumm [facility] Lymphocyte abs 1.8 0.8 - 3.3 K/cumm [facility] Monocyte abs 2.5(H) 0.2 - 0.8 K/cumm [facility] Eosinophil abs 0.4 0.0 - 0.5 K/cumm [facility] Basophil abs 0.1 0.0 - 0.1 K/cumm [facility] Neutrophil pct 48.4 % [facility] Comment: Interpretive Data Percent cell count reference ranges are not reported, since discordance with absolute values may lead to misinterpretation of CBC data. Current Interpretive Data was last revised on 2017. Imm gran pct 0.4 % [facility] Comment: Interpretive Data Percent cell count reference ranges are not reported, since discordance with absolute values may lead to misinterpretation of CBC data. Current Interpretive Data was last revised on 2017. Lymphocyte pct 19.4 % [facility] Comment: Interpretive Data Percent cell count reference ranges are not reported, since discordance with absolute values may lead to misinterpretation of CBC data. Current Interpretive Data was last revised on 2017. Monocyte pct 26.7 % [facility] Comment: Interpretive Data Percent cell count reference ranges are not reported, since discordance with absolute values may lead to misinterpretation of CBC data. Current Interpretive Data was last revised on 2017. Eosinophil pct 4.0 % [facility] Comment: Interpretive Data Percent cell count reference ranges are not reported, since discordance with absolute values may lead to misinterpretation of CBC data. Current Interpretive Data was last revised on 2017. Basophil pct 1.1 % [facility] Comment: Interpretive Data Percent cell count reference ranges are not reported, since discordance with absolute values may lead to misinterpretation of CBC data. Current Interpretive Data was last revised on 2017. Blood 05/20/2024 1:40 PM GEOSCIENCE SPECIALIST 05/20/2024 9:56 PM GEOSCIENCE SPECIALIST Slade Galeano MD LAB BLOOD ORDERABLES Final Result Performing Organization Address [facility] Co de Phone Number AURELIO [address] [facility] [employer] [place], [place] [phone] * Thyroid Function [place] (05/20/2024 1:40 PM GEOSCIENCE SPECIALIST) Pathologist [facility] TSH 1.52 0.30 - 4.20 mcIUnit/mL Blood 05/20/2024 1:40 PM GEOSCIENCE SPECIALIST 05/20/2024 9:56 PM GEOSCIENCE SPECIALIST Slade Galeano MD LAB BLOOD ORDERABLES Final Result Performing Organization Address [facility] Co de Phone Number [facility] [address] [place] [place] [address] * (ABNORMAL) CBC with auto differential (05/20/2024 1:40 PM GEOSCIENCE SPECIALIST) WBC 9.3 3.8 - 9.9 K/cumm Hgb 15.6 13.0 - 17.5 g/dL [facility] Hct 48.2 38.9 - 50.3 % [facility] Plt 353 150 - 400 K/cumm [facility] MPV 10.6 9.1 - 12.3 fL [facility] RBC 4.94 4.30 - 5.80 M/cumm [facility] MCV 97.6(H) 81.3 - 96.4 fL [facility] MCH 31.6 27.1 - 33.3 pg [facility] MCHC 32.4 32.3 - 35.7 g/dL [facility] RDW CV 13.1 11.1 - 14.9 % [facility] RDW SD 47.4 35.7 - 48.1 fL [facility] NRBC abs 0.00 0.00 - 0.01 K/cumm [facility] Blood 05/20/2024 1:40 PM GEOSCIENCE SPECIALIST 05/20/2024 9:56 PM GEOSCIENCE SPECIALIST Result [facility] Slade Galeano MD LAB BLOOD ORDERABLES Final Result [facility] HESS [address] [place] [address] * Urine culture Urine, clean voided (05/20/2024 1:40 PM GEOSCIENCE SPECIALIST) Report Final Report: No growth Comment:Testing performed by : [facility], [address] [place]., [address] Urine, clean voided 05/20/2024 1:40 PM GEOSCIENCE SPECIALIST 05/20/2024 10:10 PM GEOSCIENCE SPECIALIST Narrative [facility] - 05/22/2024 7:57 AM GEOSCIENCE SPECIALIST Testing performed by [facility] Microbiology Laboratory ([phone]) Result [facility] Slade Galeano MD LAB MICROBIOLOGY - GENERAL ORDERABLES Final Result [facility] HESS [address] Department [place] [place] [address] * (ABNORMAL) Vitamin B12 (05/20/2024 1:40 PM GEOSCIENCE SPECIALIST) Vitamin B12 1,860(H) 230 - 1,250 pg/mL Blood 05/20/2024 1:40 PM GEOSCIENCE SPECIALIST 05/20/2024 9:56 PM GEOSCIENCE SPECIALIST Slade Galeano MD LAB BLOOD ORDERABLES Final Result Performing Organization Address City/[facility] Co de Phone Number AURELIO HESS [address] Department [place] [address] * Basic metabolic panel (05/20/2024 1:40 PM GEOSCIENCE SPECIALIST) Sodium 137 135 - 145 mmol/L Potassium, pl 4.1 3.3 - 4.9 mmol/L [facility] Chloride 98 97 - 110 mmol/L [facility] CO2 25 22 - 32 mmol/L [facility] Anion gap 14 2 - 15 mmol/L [facility] BUN 16 6 - 25 mg/dL [facility] Creatinine 1.02 0.80 - 1.30 mg/dL [facility] Glucose 86 70 - 199 mg/dL [facility] Comment: Interpretive Data Fasting glucose >/= 126 [...] classification and Diagnosis of Diabetes Diabetes Care 202; 46: S19-S40. Current interpretive data was last revised 2022. Calcium 9.1 8.5 - 10.3 mg/dL [facility] Blood 05/20/2024 1:40 PM GEOSCIENCE SPECIALIST 05/20/2024 9:56 PM GEOSCIENCE SPECIALIST Slade Galeano MD LAB BLOOD ORDERABLES Final Result [facility] HESS [address] [place] [address] * (ABNORMAL) POCT UA, AUTO W/O SCOPE (05/20/2024 1:39 PM GEOSCIENCE SPECIALIST) Color, Urine, POC Yellow Clarity, ur, POC Clear Clear Glucose, ur, POC Negative Negative MG/DL Bilirubin, ur, POC Small Negative, Small, Moderate, Large Ketones, ur, POC Trace(A) Negative Specific [place], POC 1.020 1.003 - 1.030 Blood, ur, POC Negative Negative pH, ur, POC 6.0 5.0 - 8.0 Protein, ur, POC Negative Negative Urobilinogen, Urine, POC 0.2 mg/dL Leukocytes, ur, POC Negative Negative Nitrite, ur, POC Negative Negative Appearance, fld Clear Clear Urine, clean voided 05/20/2024 1:39 PM GEOSCIENCE SPECIALIST Slade Galeano MD POINT OF CARE TEST ORDERABL ES Final Result * POC Influenza A/B, COVID-19 antigen (05/17/2024 3:12 PM GEOSCIENCE SPECIALIST) Pathologist [facility] Influenza A Ag, POC Negative Negative [facility] Influenza B Ag, POC Negative Negative [facility] COVID-19 Ag POC Presumptive Negative Presumptive Negative, Invalid [facility] Nasal 05/17/2024 3:12 PM GEOSCIENCE SPECIALIST Lorene Tuttle NP POINT OF CARE TEST ORDERABLES Final Result Performing Organization Address City/State/[facility] Co de Phone Number [facility] [address] [place] [address] * Influenza A/B, RSV, and COVID-19 PCR Nasopharyngeal (05/17/2024 12:00 AM GEOSCIENCE SPECIALIST) Pathologist [facility] COVID-19 RNA Negative Negative Influenza A RNA Negative Negative [facility] Influenza B RNA Negative Negative [facility] RSV RNA Negative Negative [facility] Comment: Interpretive data: Testing performed by [facility]. This test is performed using the [employer] Xpert Xpress CoV-2/Flu/RSV plus assay. This is a multiplex, real-time reverse transcriptase PCR assay intended for the qualitative detection of nucleic acid from SARS-CoV-2, influenza A, influenza B, and respiratory syncytial virus. This assay has been cleared by the [place] Food and Drug administration. The performance characteristics have been verified by the [facility]. Results must be considered in the clinical context, and a negative result does not rule out infection. Interpretive Data last revised 2023 Nasopharyngeal 05/17/2024 05/17/2024 7:13 PM GEOSCIENCE SPECIALIST Narrative AURELIO HESS - 05/17/2024 8:48 PM GEOSCIENCE SPECIALIST Is the Patient experiencing symptoms consistent with COVID?->Yes Reason for testing?->Symptomatic Known exposure to confirmed or suspected COVID-19 case?->Yes Lorene Tuttle NP LAB MICROBIOLOGY - GENERAL ORD ERABLES Final Result [facility] HESS [address] [place] [address] CH * COLONOSCOPY (12/13/2023 9:21 AM CDT) Scribed Colonoscopy Abnormal Historical Provider HEALTH MAINTENANCE Final Result * HEPATITIS C SCREENING (12/20/2016) SCRIBED HCV ab nonreactive Comment:care everywhere 12/20/2016 Historical Provider HEALTH MAINTENANCE Final Result from Last 3 Months or Most Recently Relevant to Health Maintenance Additional Health Concerns Infection Onset Date Last Indicated C. difficile 05/22/2024 05/22/2024 Insurance [facility] MEDICARE MEDICARE [facility] MEDICARE SUPPLEMENT Care Teams Primary Special Education Teacher Relationship Specialty Start Date End Date Narda Martinez NP [address] [place] [address] PCP - General Family Medicine 06/07/24
--- OUTSIDE RECORDS SUMMARY | 2024-08-06 13:32 | XMS_ITS | Encounter Summary ---
Author Organization [facility] Healthcare Address [address] [place] [address] Care Team Providers Care Bilingual Trainer Name Role Phone Narda Martinez NP Primary Care Provider [phone] Reason for Referral * Consultation (Routine) - Closed Specialty Diagnoses / Procedures Referred By Avila barraza Referred To Contact Urology Diagnoses Elevated PSA History of prostate cancer Narda Martinez NP [address] [facility] [address] [place] [address] Phone: tel: fax: External Order Referral ID Status Reason Start Date Expiration Date V isits Requested Visits Authorized [id number] Closed Specialty Services Required 06/11/2024 07/11/2025 1 1 Question Answer Please select the performing region: External Order [171] # of visits: 1 Comments [facility] [address] [facility], [address] [place] [address] Encounter Details Date Type Department Care Team (Late st Contact Info) Description 06/10/2024 Results Follow-Up [facility] Primary Care at [address] [address] Narda Martinez NP [address] [facility] [address] [place] [address] Elevated PSA (Primary Dx); History of prostate cancer Social History Tobacco Use Types Packs/Day Years Used Date Smoking Tobacco: Former Cigarettes 1.5 40 0 04/03/1966 - 04/03/2006 Smokeless Tobacco: Never PHQ-2 Answer Date Recorded PHQ-2 Total Score (If total score is 3 or more points, staff should administer the PHQ-9) 0 06/07/2024 Sex and Gender Information Value Date Recorded Sex Assigned at Not on file Legal Sex Male 9:30 AM CDT Gender Identity Male 11/02/2021 9:32 AM CDT Sexual Orientation Not on file documented as of this encounter Plan of Treatment Scheduled Referrals Name Type Priority Associated Diagnoses Order Schedule Ambulatory referral to Urology Outpatient Referral Routine Elevated PSA History of prostate cancer Expected: 06/25/2024 (Approximate), Expires: 06/11/2025 documented as of this encounter Visit Diagnoses Diagnosis Elevated PSA- Primary Elevated prostate specific antigen (PSA) History of prostate cancer Personal history of malignant neoplasm of prostate documented in this encounter Additional Health Concerns Infection Onset Date Last Indicated Resolved Time C. difficile 05/22/2024 05/22/2024 documented as of this encounter Care Teams Bilingual Trainer Relationship Specialty Start Date End Date Narda Martinez NP [address] [facility] [address] [place] [address] PCP - General Family Medicine 06/07/24 documented as of this encounter
--- OUTSIDE RECORDS SUMMARY | 2024-08-06 13:32 | XMS_ITS | Clinical Summary ---
Author Organization [facility] Address [address] [place] [address] Phone Care Team Providers Care Catia Designer Name Role Phone Saskia GARCIA MD, Mychal Foss Primary Care Provider Allergies Active Allergy Reactions Criticality Noted Date Comments No Known Latex Allergy Other (see Comments) 09/2007 Or food allergy Medications fluoxetine (PROZAC) 20 MG PO CAPS Take 1 Cap by mouth daily. Active aspirin 325 MG PO TABS Take 1 Tab by mouth daily. Active simvastatin (ZOCOR) 20 MG PO TABS Take 1 Tab by mouth daily. Active Cholecalciferol (VITAMIN D PO) Take by mouth daily. Active Multiple Vitamin (MULTIVITAMIN PO) Take 1 Tab by mouth daily. Reported on 04/28/2016 Active sildenafil citrate (VIAGRA) 100 MG PO TABS Take 1 Tab by mouth as needed for Erectile Dysfunction for up to 10 doses. Take 1 hour prior, on an empty stomach. Avoid alcohol. 10 Tab 11 4 Active gabapentin (NEURONTIN) 600 MG Tablet 5 Active INCRUSE ELLIPTA 62.5 MCG/INH AEROSOL POWDER, BREATH ACTIVATED Reported on 04/28/2016 6 Active Active Problems Problem Noted Date Diagnosed Date Hematuria 03/14/2011 Overview (03/14/2011): 2006 Hem W/U ED (erectile dysfunction) 03/14/2011 Overview (03/14/2011): [facility] Prostate CA 01/01/2007 Overview (03/14/2011): 2006 L 616 (30%) T1c IMRT PSA 3.9 Social History Tobacco Use Types Packs/Day Years Used Date Smoking Tobacco: Former Smokeless Tobacco: Never Tobacco Cessation:Counseling Given: No Alcohol Use Standard Drinks/Week Comments No 0 (1 standard drink = 0.6 oz pur e alcohol) Sex and Gender Information Value Date Recorded Sex Assigned at Not on file 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 Gender Identity Not on file Sexual Orientation Not on file Last Filed Vital Signs Vital Sign Reading Time Taken Comments Blood Pressure 130/82 05/04/2017 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 Pulse 72 05/04/2017 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 Temperature - - Respiratory Rate 16 05/04/2017 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 Oxygen Saturation - - Inhaled Oxygen Concentration - - Weight 90.7 kg (200 lb) 05/04/2017 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 Height 177.8 cm (5' 10 ) 05/04/2017 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 Body Mass Index 28.7 05/04/2017 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 Plan of Treatment Health Maintenance Due Date Last Done Comments Hepatitis C Virus (HCV) Screening 1950 TdaP Immunization 1950 SARS-COV-2 Immunization (#1) 1954 Zoster Immunization (1 of 2) 1968 Colonoscopy 1994 Colorectal Cancer Screening 1994 Cologuard 1999 Immunochemical Fecal Occult Blood 1999 Influenza Immunization (#1) 12/03/202312/02, 01/16/2019, 12/07/2017, Additional history exists Respiratory Syncytial Virus (RSV) Immunization (Adult) (1 - 1-dose 75+ series) 2024 Pneumococcal Immunization (50+ years) Completed 12/16/2015, 09/25/2014 Pneumococcal Immunization Combined Discontinued 12/16/2015, 09/25/2014 PSA Discussion Discontinued 12/07/2017, 04/03, 04/11/2016, Additional history exists Hepatitis B Immunization Aged Out No longer eligible based on patient's age to complete this topic Meningococcal Immunization (ACWY) Aged Out No longer eligible based on patient's age to complete this topic Rotavirus Immunization Aged Out No lo nger eligible based on patient's age to complete this topic Procedures Procedure Name Priority Date/Time Associated Diagnosis Comments PSA DIAGNOSTIC,TOTAL Routine 12/07/2017 Prostate CA (HCC) from Last 3 Months or Most Recently Relevant to Health Maintenance Results * PSA DIAGNOSTIC,TOTAL (12/07/2017) PSA (PROSTATE SPECIFIC ANTIGEN) 0.60 ng/mL Blood specimen (specimen) 12/07/2017 us Fausto Vieira MD CHEMISTRY ORDERABLES Fi nal Result from Last 3 Months or Most Recently Relevant to Health Maintenance [facility] Care Teams Catia Designer Relationship Specialty Start Date End Date Mychal Kruger II, MD [address] [place] [address] PCP - General 05/03/07
== END 2024-08-06 13:27 | disposition home or self-care (01) ==
PROVIDERS: PCP Nurse Practitioner Family; Visit Provider Urology
DX: C61 Malignant neoplasm of prostate (principal)
CPT/HCPCS: 78815; A9596